=== PATIENT | male | born 1970 | race Caucasian/White ===

== ENCOUNTER 2019-06-30 12:51 | Inpatient (IN) ==
[2019-06-30] MEDS ORDERED: Aspirin 325 MG TABLET PO ONE (13:28)
[2019-06-30] MEDS ORDERED: Isovue-370 500 ML BOTTLE IVP ONE (13:28)
[2019-06-30] MEDS ORDERED: Ipratropium/Albuterol Neb 3 ML IH ONE (13:28)
[2019-06-30] MEDS ORDERED: methylPREDNISolone 125 MG/2 ML VIAL IVP ONE (13:28)
[2019-06-30 13:43] LABS: Basophils # 0.1 K/mcL (0.0-0.2); Basophils % 0.5 %; Eosinophils # 0.2 K/mcL (0.0-0.6); Hematocrit 41.2 % (37.5-50.1); Hemoglobin 12.9 g/dL (12.9-16.9); Immature Granulocytes % 0.3 % (0-4); Lymphocytes # 1.9 K/mcL (0.6-4.6); Lymphocytes % 20.8 %; Mean Corpuscular HGB Conc 31.3 g/dL (31.6-35.5); Mean Corpuscular Hemoglobin 28.8 pg (28.0-33.3); Mean Platelet Volume 12.4 fL (9.4-12.4); Monocytes # 0.4 K/mcL (0.0-1.3); Monocytes % 4.1 %; Neutrophils # 6.7 K/mcL (1.6-8.9); Platelet Count 206 K/mcL (140-400); Red Blood Count 4.48 M/mcL (4.19-5.50); Segmented Neutrophils % 72.3 %; White Blood Count 9.3 K/mcL (4.3-11.1)
[2019-06-30 14:10] LABS: Alanine Aminotransferase 20 Units/L (7-52); Albumin 4.4 g/dL (3.5-5.7); Albumin/Globulin Ratio 1.4 (1.1-2.2); Alkaline Phosphatase 88 Units/L (34-104); Aspartate Amino Transferase 15 Units/L (13-39); BUN/Creatinine Ratio 10 (6-26); Bilirubin,Total 1.4 mg/dL (0.3-1.0); Blood Urea Nitrogen 14 mg/dL (6-20); Calcium 9.5 mg/dL (8.6-10.3); Carbon Dioxide 24 mEq/L (23-29); Chloride 106 mEq/L (98-107); Globulin 3.1 g/dL (2.4-3.5); Glucose 113 mg/dL (70-105); Osmolality,Calculated 291 (280-300); Potassium 3.5 mEq/L (3.5-5.1); Sodium 140 mEq/L (136-145); Total Protein 7.5 g/dL (6.4-8.9); Troponin I 0.05 ng/mL (< 0.04); eGFR For African Americans > 60 (> 60); eGFR For Non-African Americans 57 (> 60)
[2019-06-30] MEDS ORDERED: *HR* Labetalol 20 MG/4 ML SYRINGE IVP STA (15:22)
[2019-06-30] MEDS ORDERED: Furosemide 40 MG/4 ML VIAL IVP ONE (15:53)
[2019-06-30] MEDS ORDERED: Naloxone 0.4 MG/ML INJ IVP PRN (15:55)
[2019-06-30] MEDS ORDERED: Ondansetron ODT 4 MG TAB.RAPDIS SL PRN (15:55)
[2019-06-30] MEDS ORDERED: Furosemide 40 MG/4 ML VIAL ONE (16:00)
[2019-06-30] MEDS ORDERED: Dextrose Gel 15 GM/37.5 ML TUBE PO PRN ×2 (16:04)
[2019-06-30] MEDS ORDERED: D5% in Water 1,000 ML IVC PRN (16:04)
[2019-06-30] MEDS ORDERED: *HR* Dextrose 50 % in Water (Syg) 50 ML SYRINGE IVP PRN (16:04)
[2019-06-30] MEDS ORDERED: Nitroglycerin 0.4 MG TAB.SUBL SL PRN (16:04)
[2019-06-30] MEDS ORDERED: *HR* Labetalol 20 MG/4 ML SYRINGE IVP PRN (16:05)
[2019-06-30] MEDS ORDERED: Ipratropium/Albuterol Neb 3 ML IH PRN (16:06)
[2019-06-30 17:05] LABS: ABG Base Excess 0 mEq/L (-2 to 3); ABG HCO3 24 mEq/L (21-27); ABG Oxygen Saturation 94 % (95-98); ABG PCO2 37 mmHg (35-45); ABG PH 7.42 pH Units (7.32-7.45); ABG PO2 69 mmHg (85-104); ABG TCO2 26 mEq/L (20-26)
[2019-06-30] MEDS: Insulin LISPRO 300 UNITS/3 ML VIAL SQ SCH ×2 (17:11→20:03)
[2019-06-30 17:24] LABS: Magnesium 1.9 mg/dL (1.6-2.6)
[2019-06-30] MEDS ORDERED: Insulin LISPRO 300 UNITS/3 ML VIAL SQ SCH (18:00)
[2019-06-30] MEDS ORDERED: amLODIPine 5 MG TABLET PO ONE (18:43)
[2019-06-30 19:26] LABS: Estimated Average Glucose 97 mg/dl
[2019-06-30] MEDS ORDERED: *HR* Metoprolol 5 MG/5 ML VIAL IVP ONE (22:10)
[2019-07-01 02:14] LABS: Hematocrit 39.7 % (37.5-50.1); Hemoglobin 12.3 g/dL (12.9-16.9); Mean Corpuscular Hemoglobin 28.5 pg (28.0-33.3); Mean Corpuscular Volume 92.1 fL (83.0-100.0); Mean Platelet Volume 13.1 fL (9.4-12.4); Platelet Count 189 K/mcL (140-400); Red Blood Count 4.31 M/mcL (4.19-5.50); White Blood Count 11.3 K/mcL (4.3-11.1)
[2019-07-01 02:21] LABS: BUN/Creatinine Ratio 13 (6-26); Blood Urea Nitrogen 16 mg/dL (6-20); Calcium 9.6 mg/dL (8.6-10.3); Carbon Dioxide 25 mEq/L (23-29); Chloride 107 mEq/L (98-107); Chol/HDL Ratio 2.6 (0-4.9); Cholesterol 130 mg/dL (< 200); Glucose 133 mg/dL (70-105); HDL Cholesterol 50 mg/dL (40-59); LDL Cholesterol,Calculated 73 mg/dL (0-99); Osmolality,Calculated 289 (280-300); Sodium 138 mEq/L (136-145); Triglycerides 34 mg/dL (< 150); eGFR For African Americans > 60 (> 60); eGFR For Non-African Americans > 60 (> 60)
[2019-07-01] MEDS: Insulin LISPRO 300 UNITS/3 ML VIAL SQ SCH ×4 (08:01→19:39)
[2019-07-01] MEDS ORDERED: amLODIPine 5 MG TABLET PO SCH (09:00)
[2019-07-01] MEDS ORDERED: Perflutren Lipid Microsphere 1.3 ML in 0.9 % Sodium Chloride 8.7 ML IVP ONE (12:44)
[2019-07-01] MEDS ORDERED: Metoprolol XL (24 HR) Succ 25 MG TAB.ER.24H PO SCH (14:20)
[2019-07-01] MEDS: Furosemide 20 MG TABLET PO SCH (15:09)
[2019-07-01] MEDS: Aspirin Enteric Coated 81 MG Tablet PO SCH (15:09)
[2019-07-02 04:00] LABS: Basophils # 0.1 K/mcL (0.0-0.2); Basophils % 0.4 %; Eosinophils # 0.1 K/mcL (0.0-0.6); Eosinophils % 0.8 %; Hematocrit 39.7 % (37.5-50.1); Hemoglobin 12.5 g/dL (12.9-16.9); Immature Granulocytes % 0.3 % (0-4); Lymphocytes % 23.7 %; Mean Corpuscular HGB Conc 31.5 g/dL (31.6-35.5); Mean Corpuscular Hemoglobin 28.7 pg (28.0-33.3); Mean Corpuscular Volume 91.1 fL (83.0-100.0); Mean Platelet Volume 12.7 fL (9.4-12.4); Monocytes # 0.6 K/mcL (0.0-1.3); Monocytes % 4.7 %; Neutrophils # 8.7 K/mcL (1.6-8.9); Platelet Count 202 K/mcL (140-400); Red Blood Count 4.36 M/mcL (4.19-5.50); Red Cell Distribution Width 16.4 % (11.5-14.5); Segmented Neutrophils % 70.1 %; White Blood Count 12.5 K/mcL (4.3-11.1)
[2019-07-02 04:20] LABS: BUN/Creatinine Ratio 18 (6-26); Blood Urea Nitrogen 26 mg/dL (6-20); Calcium 9.2 mg/dL (8.6-10.3); Carbon Dioxide 25 mEq/L (23-29); Chloride 104 mEq/L (98-107); Glucose 116 mg/dL (70-105); Osmolality,Calculated 296 (280-300); Sodium 140 mEq/L (136-145); eGFR For African Americans > 60 (> 60); eGFR For Non-African Americans 52 (> 60)
[2019-07-02] MEDS ORDERED: 0.9 % Sodium Chloride 250 ML IVC ONE (07:14)
[2019-07-02] MEDS: Insulin LISPRO 300 UNITS/3 ML VIAL SQ SCH ×4 (07:32→20:59)
[2019-07-02] MEDS ORDERED: carvediloL 6.25 MG TABLET PO SCH ×2 (08:00→08:14)
[2019-07-02] MEDS: Aspirin Enteric Coated 81 MG Tablet PO SCH (08:25)
[2019-07-02] MEDS: amLODIPine 5 MG TABLET PO SCH (08:25)
[2019-07-02] MEDS: Furosemide 20 MG TABLET PO SCH (08:25)
[2019-07-02] MEDS ORDERED: Furosemide 40 MG/4 ML VIAL IVP ONE ×2 (09:53→16:00)
[2019-07-02 14:04] LABS: Hematocrit 41.7 % (37.5-50.1); Hemoglobin 13.1 g/dL (12.9-16.9); Mean Corpuscular HGB Conc 31.4 g/dL (31.6-35.5); Mean Corpuscular Hemoglobin 28.4 pg (28.0-33.3); Mean Corpuscular Volume 90.3 fL (83.0-100.0); Mean Platelet Volume 12.8 fL (9.4-12.4); Platelet Count 227 K/mcL (140-400); Red Blood Count 4.62 M/mcL (4.19-5.50); Red Cell Distribution Width 16.3 % (11.5-14.5); White Blood Count 10.8 K/mcL (4.3-11.1)
[2019-07-02] MEDS: carvediloL 25 MG TABLET PO SCH (16:38)
[2019-07-03 05:43] LABS: Hematocrit 41.8 % (37.5-50.1); Hemoglobin 13.5 g/dL (12.9-16.9); Mean Corpuscular HGB Conc 32.3 g/dL (31.6-35.5); Mean Corpuscular Hemoglobin 28.7 pg (28.0-33.3); Mean Corpuscular Volume 88.9 fL (83.0-100.0); Mean Platelet Volume 12.9 fL (9.4-12.4); Platelet Count 226 K/mcL (140-400); Red Cell Distribution Width 16.3 % (11.5-14.5); White Blood Count 10.3 K/mcL (4.3-11.1)
[2019-07-03 06:05] LABS: BUN/Creatinine Ratio 21 (6-26); Blood Urea Nitrogen 31 mg/dL (6-20); Calcium 9.4 mg/dL (8.6-10.3); Carbon Dioxide 26 mEq/L (23-29); Chloride 104 mEq/L (98-107); Glucose 111 mg/dL (70-105); Osmolality,Calculated 295 (280-300); Potassium 3.8 mEq/L (3.5-5.1); Sodium 139 mEq/L (136-145); eGFR For African Americans > 60 (> 60); eGFR For Non-African Americans 51 (> 60)
[2019-07-03] MEDS: Insulin LISPRO 300 UNITS/3 ML VIAL SQ SCH ×4 (08:27→20:49)
[2019-07-03] MEDS: amLODIPine 5 MG TABLET PO SCH (08:28)
[2019-07-03] MEDS: Furosemide 20 MG TABLET PO SCH (08:28)
[2019-07-03] MEDS: carvediloL 25 MG TABLET PO SCH ×2 (08:28→16:27)
[2019-07-03] MEDS: Aspirin Enteric Coated 81 MG Tablet PO SCH (08:28)
[2019-07-03] MEDS ORDERED: 0.9 % Sodium Chloride 1,000 ML ONE (11:42)
[2019-07-03] MEDS ORDERED: *HR* Heparin 10,000 UNIT/10 ML VIAL ONE (11:42)
[2019-07-03] MEDS ORDERED: Nitroglycerin 1,000 MCG/10 ML VIAL IV ONE (11:42)
[2019-07-03] MEDS ORDERED: Heparin 1,000 UNITS/500 mL 500 ML ONE (11:42)
[2019-07-03] MEDS ORDERED: ISOVUE-370 200 ML INFUS..BTL ONE (11:42)
[2019-07-03] MEDS ORDERED: *HR* Midazolam HCl 2 MG/2 ML VIAL ONE (12:36)
[2019-07-03] MEDS ORDERED: *HR* FentaNYL (PF) 100 MCG/2 ML VIAL ONE (12:36)
[2019-07-04 04:39] LABS: BUN/Creatinine Ratio 17 (6-26); Blood Urea Nitrogen 24 mg/dL (6-20); Calcium 9.2 mg/dL (8.6-10.3); Carbon Dioxide 23 mEq/L (23-29); Chloride 104 mEq/L (98-107); Glucose 101 mg/dL (70-105); Osmolality,Calculated 290 (280-300); Potassium 3.9 mEq/L (3.5-5.1); Sodium 138 mEq/L (136-145); eGFR For African Americans > 60 (> 60); eGFR For Non-African Americans 55 (> 60)
[2019-07-04] MEDS ORDERED: carvediloL 25 MG TABLET PO SCH (08:00)
[2019-07-04] MEDS: Insulin LISPRO 300 UNITS/3 ML VIAL SQ SCH (08:39)
[2019-07-04] MEDS: amLODIPine 5 MG TABLET PO SCH (08:43)
[2019-07-04] MEDS: Aspirin Enteric Coated 81 MG Tablet PO SCH (08:43)
[2019-07-04] MEDS: Furosemide 20 MG TABLET PO SCH (08:43)
[2019-07-04 10:27] VITALS: BP 147/92
== END 2019-07-04 11:23 | disposition home or self-care (01) | DRG 280 ==
LOC: 2ANU 12:51 → EMEROOARM 12:51 → SUATTDRO 15:13 → 2ANU 16:15 → SUATTDRO 07-02 12:19
PROVIDERS: ADMIT Family Medicine; ATTEND Internal Medicine